=== PATIENT | female | born 1975 | race Caucasian/White ===

== ENCOUNTER 2016-06-07 16:23 | Emergency (ER) | payer OTHER ==
[2016-06-07 16:34] VITALS: RESP 16
--- NOTE | 2016-06-07 17:06 | EDPHY ---
H & P Stated Complaint: Parathyroidectomy 06/04 @ [facility];facial numbness since;sent for Ca level Time Seen by Provider: 06/07/16 16:51 HPI/ROS: CHIEF COMPLAINT: Numbness HISTORY OF PRESENT ILLNESS: of lips and cheeks and chin patient is a 41-year- old female who comes to the emergency department requesting to have her calcium levels checked. 3 days ago she had a parathyroid mass removed. She still has her other 3 parathyroid glands. Since the surgery she has had intermittent tingling and paresthesias in her lips and cheeks. She has been taking supplemental calcium p.r.n.. She states that she has taken 14 tablets today but she persists in having this tingling sensation. No weakness or numbness. No slurred speech. No facial droop. No other weakness or deficits. No fevers REVIEW OF SYSTEMS: Constitutional: denies: chills, fever, recent illness, recent injury EENTM: See HPI Respiratory: denies: cough, shortness of breath Cardiac: denies: chest pain, irregular heart rate, lightheadedness, palpitations Gastrointestinal/Abdominal: denies: abdominal pain, diarrhea, nausea, vomiting, blood streaked stools Genitourinary: denies: dysuria, frequency, hematuria, pain Musculoskeletal: See HPI Skin: denies: lesions, rash, jaundice, bruising Neurological: denies: headache, numbness, paresthesia, tingling, dizziness, weakness Hematologic/Lymphatic: denies: blood clots, easy bleeding, easy bruising Immunologic/allergic: denies: HIV/AIDS, transplant EXAM: GENERAL: Well-appearing, well-nourished and in no acute distress. HEAD: Atraumatic, normocephalic. EYES: Pupils equal round and reactive to light, extraocular movements intact, sclera anicteric, conjunctiva are normal. ENT: Chovstick's sign TMs normal, nares patent, oropharynx clear without exudates. Moist mucous membranes. NECK: Normal range of motion, supple without lymphadenopathy or JVD. LUNGS: Breath sounds clear to auscultation bilaterally and equal. No wheezes rales or rhonchi. HEART: Regular rate and rhythm without murmurs, rubs or gallops. ABDOMEN: Soft, nontender, normoactive bowel sounds. No guarding, no rebound. No masses appreciated. BACK: No CVA tenderness, no spinal tenderness, step-offs or deformities EXTREMITIES: Normal range of motion, no pitting or edema. No clubbing or cyanosis. NEUROLOGICAL: Cranial nerves II through XII grossly intact. Normal speech, normal gait. 5/5 strength, normal movement in all extremities, normal sensation PSYCH: Normal mood, normal affect. SKIN: Warm, dry, normal turgor, no visible rashes or lesions. Source: Patient Exam Limitations: No limitations - Personal History LMP (Females 10-55): Now Current Tetanus Diphtheria and Acellular Pertussis (TDAP): Yes - Medical/Surgical History Hx Asthma: No Hx Chronic Respiratory Disease: No Hx Diabetes: No Hx Cardiac Disease: No Hx Renal Disease: No Hx Cirrhosis: No Other PMH: enlarged parathyroid w/surg 06/04/16 - Family History Significant Family History: Hypertension - Social History Smoking Status: Never smoked Alcohol Use: Sober Drug Use: None Constitutional: Initial Vital Signs Temperature (C) 36.6 C 06/07/16 16:29 Heart Rate 81 06/07/16 16:29 Respiratory Rate 16 06/07/16 16:29 Blood Pressure 124/86 H 06/07/16 16:29 O2 Sat (%) 95 06/07/16 16:29 O2 Delivery Mode Room Air Allergies/Adverse Reactions: bee venom protein (honey bee) Allergy (Verified 06/07/16 16:35) salmon Allergy (Uncoded 06/07/16 16:35) Home Medications: Medication Instructions Recorded Calcium [HI-VALENTINA] 500 mg PO 06/07/16 oxyCODONE/APAP 5/325 [Percocet 1 tab PO 06/07/16 5/325 (*)] Medical Decision Making ED Course/Re-evaluation: The patient's electrolytes that are within normal range. I spoke with Dr. Scott who is on-call for Dr. Washington. He feels reassured with the lab work and will call to follow up with her tomorrow or Thursday. The patient is happy with this. Her symptoms have improved. She declines further workup or testing at this time. Differential Diagnosis: Partial list of the Differential diagnosis considered include but were not limited to; hypocalcemia, hypercalcemia, magnesium depletion, and although unlikely based on the history and physical exam, I also considered dehydration, TIA, nerve palsy. I discussed these differential diagnoses and the plan with the patient as well as the usual and expected course. The patient understands that the diagnosis is provisional and that in medicine we are not always correct and that further workup is often warranted. Usual and customary warnings were given. All of the patient's questions were answered. The patient was instructed to return to the emergency department should the symptoms at all worsen or return, otherwise to followup with the physician as we discussed. - Data Points Laboratory Results: Laboratory Results 06/07/16 17:32 0406/07/16 17:32 17:32 Sodium 136 mEq/L mEq/L (134-144) Potassium 4.0 mEq/L mEq/L (3.5-5.2) Chloride 104 mEq/L mEq/L (97-110) Carbon Dioxide 23 mEq/l mEq/l (22-31) Anion Gap 9 mEq/L mEq/L (8-16) BUN 17 mg/dL mg/dL (7-23) Creatinine 0.7 mg/dL mg/dL (0.6-1.0) Estimated GFR > 60 Glucose 93 mg/dL mg/dL (70-100) Calcium 9.5 mg/dL mg/dL (8.5-10.4) Ionized Calcium 1.16 MMOL/L MMOL/L (1.12-1.30) Phosphorus 4.7 mg/dL H mg/dL (2.5-4.5) Magnesium 1.6 mg/dL mg/dL (1.6-2.3) Departure - Departure Disposition: Home, Routine, Self-Care Clinical Impression: Tingling sensation, Hypocalcemia Condition: Fair Instructions: Hypocalcemia (ED) Referrals: Ellie Zavala MD [Primary Care Provider] - As per Instructions
[2016-06-07 17:41] LABS: IONIZED CALCIUM 1.16 MMOL/L (1.12-1.30)
[2016-06-07 18:01] LABS: ANION GAP 9 mEq/L (8-16); CALCIUM 9.5 mg/dL (8.5-10.4); CARBON DIOXIDE 23 mEq/l (22-31); CHLORIDE 104 mEq/L (97-110); CREATININE 0.7 mg/dL (0.6-1.0); GLOMERULAR FILTRATION RATE > 60; GLUCOSE 93 mg/dL (70-100); MAGNESIUM 1.6 mg/dL (1.6-2.3); SODIUM 136 mEq/L (134-144)
[2016-06-07 18:58] VITALS: BP 109/80; PULSE 72; TEMP 98.2; O2SAT 100
== END 2016-06-07 18:58 | disposition home or self-care (01) ==
DX: E83.51 Hypocalcemia (principal)